=== PATIENT | female | born 1950 | race Two or more races ===

== ENCOUNTER 2023-09-28 15:53 | Inpatient (IN) | payer MEDICARE, OTHER ==
[~2023-09-28] VITALS: Ht 152.4 cm; Wt 77.1 kg
[2023-09-28] MEDS ORDERED: IV NS 0.9% 1,000 ML BAG IV ONE (16:30)
[2023-09-28] MEDS ORDERED: MORPHINE SULFATE INJ 2 MG/ML DISP.SYRIN IV ONE (16:30)
[2023-09-28] MEDS ORDERED: ONDANSETRON HCL/PF 4 MG/2 ML VIAL IVP ONE (16:30)
[2023-09-28] MEDS ORDERED: PANTOPRAZOLE 40 MG VIAL IV ONE (16:30)
[2023-09-28 16:34] LABS: BASOPHILS % (AUTO) 0.6 % (0.0-2.0); EOSINOPHILS # (AUTO) 0.1 K/uL (0.0-0.7); EOSINOPHILS % (AUTO) 0.9 % (0.0-6.0); HEMATOCRIT 28 % (33-45); HEMOGLOBIN 9.3 g/dL (11.5-14.8); LYMPHOCYTES # (AUTO) 2.6 K/uL (0.8-4.8); LYMPHOCYTES % (AUTO) 33.4 % (20.0-44.0); MEAN CORPUSCULAR HEMOGLOBIN 31 PG (26.0-33.0); MEAN CORPUSCULAR HGB CONC 33 g/dl (31.0-36.0); MEAN CORPUSCULAR VOLUME 93 fL (82-100); MONOCYTES # (AUTO) 0.4 K/uL (0.1-1.30); MONOCYTES % (AUTO) 5.6 % (2.0-12.0); NEUTROPHILS # (AUTO) 4.5 K/uL (1.8-8.9); NEUTROPHILS % (AUTO) 59.5 % (43.0-81.0); PLATELET COUNT (AUTO) 356 K/uL (150-450); RED BLOOD CELL COUNT(AUTO) 3.02 MIL/uL (4.0-5.2); RED CELL DISTRIBUTION WIDTH 15.1 % (11.5-15.0); WHITE BLOOD COUNT (AUTO) 7.6 K/uL (4.3-11.0)
[2023-09-28] MEDS ORDERED: ONDANSETRON HCL/PF 4 MG/2 ML VIAL ONE (16:41)
[2023-09-28] MEDS ORDERED: PANTOPRAZOLE 40 MG VIAL ONE (16:41)
[2023-09-28] MEDS ORDERED: MORPHINE SULFATE INJ 4 MG/ML DISP.SYRIN ONE (16:42)
[2023-09-28 16:52] LABS: ALANINE AMINOTRANSFERASE 15 U/L (12-78); ALBUMIN 2.8 g/dL (3.4-5.0); ALKALINE PHOSPHATASE 271 U/L (46-116); ASPARTATE AMINOTRANSFERASE 14 U/L (15-37); BILIRUBIN,DIRECT 0.1 mg/dL (0.0-0.2); BILIRUBIN,TOTAL 0.3 mg/dL (0.2-1.0); CALCIUM, SERUM 9.3 mg/dL (8.5-10.1); CARBON DIOXIDE 26 mmol/L (21-32); CHLORIDE 97 mmol/L (98-107); GLUCOSE 324 mg/dL (74-106); LIPASE 48 U/L (16-77); POTASSIUM 4.4 mmol/L (3.5-5.1); SODIUM SERUM 132 mmol/L (136-145); TOTAL PROTEIN, SERUM 8.2 g/dL (6.4-8.2); UREA NITROGEN, BLOOD 21 mg/dL (7-18)
[2023-09-28] MEDS ORDERED: PIPERACILLIN /TAZOBACTAM 3.375 G in IV D5W 50 ML IV ONE (18:30)
[2023-09-28] MEDS ORDERED: PIPERACI/TAZO 3.375GM/D5W 50ML PB IV ONE (18:35)
[2023-09-28] MEDS ORDERED: MAGNESIUM HYDROXIDE 30 ML UDC PO PRN (20:00)
[2023-09-28] MEDS ORDERED: ONDANSETRON HCL/PF 4 MG/2 ML VIAL IVP PRN (20:00)
[2023-09-28] MEDS ORDERED: MAG HYDROX/AL HYDROX/SIMETH 30 ML UDC PO PRN (20:00)
[2023-09-28] MEDS ORDERED: ACETAMINOPHEN 325 MG TABLET PO PRN (20:00)
[2023-09-28 20:39] LABS: APPEARANCE,URINE CLEAR (CLEAR); BILIRUBIN,URINE NEGATIVE (NEGATIVE); BLOOD, URINE 1+ Ery/uL (NEGATIVE); COLOR,URINE YELLOW (YELLOW); KETONES,URINE NEGATIVE (NEGATIVE); LEUKOCYTE ESTERASE ,URINE 2+ (NEGATIVE); NITRITE, URINE POSITIVE (NEGATIVE); PH,URINE 6.5 (5.0-8.0); PROTEIN,URINE TRACE mg/dl (NEGATIVE); UGLUCOSE TRACE mg/dL (NEGATIVE); UROBILINOGEN,URINE 0.2 EU/dL (0.2)
[2023-09-28 20:49] LABS: WBC,URINE 21-50 /HPF (0-3)
[2023-09-28 20:50] LABS: ADD URINE CULTURE YES; BACTERIA,URINE 1+ /HPF (None Seen)
[2023-09-28] MEDS: IV NS 0.9% 1,000 ML IV PRN (23:06)
[2023-09-29] MEDS ORDERED: hydrALAZINE HCL IV 20 MG VIAL ONE ×2 (04:13→11:47)
[2023-09-29] MEDS ORDERED: hydrALAZINE HCL IV 20 MG VIAL IV PRN (04:30)
[2023-09-29] MEDS ORDERED: ZOSYN IVPB 2.25 G in IV D5W 50ml IV SCH (07:30)
[2023-09-29 09:11] LABS: BASOPHILS % (AUTO) 0.5 % (0.0-2.0); EOSINOPHILS # (AUTO) 0.1 K/uL (0.0-0.7); HEMATOCRIT 29 % (33-45); HEMOGLOBIN 9.8 g/dL (11.5-14.8); LYMPHOCYTES # (AUTO) 2.2 K/uL (0.8-4.8); LYMPHOCYTES % (AUTO) 31.9 % (20.0-44.0); MEAN CORPUSCULAR HEMOGLOBIN 31 PG (26.0-33.0); MEAN CORPUSCULAR HGB CONC 34 g/dl (31.0-36.0); MEAN CORPUSCULAR VOLUME 92 fL (82-100); MONOCYTES # (AUTO) 0.4 K/uL (0.1-1.30); MONOCYTES % (AUTO) 5.1 % (2.0-12.0); NEUTROPHILS # (AUTO) 4.3 K/uL (1.8-8.9); NEUTROPHILS % (AUTO) 60.5 % (43.0-81.0); PLATELET COUNT (AUTO) 360 K/uL (150-450); RED BLOOD CELL COUNT(AUTO) 3.17 MIL/uL (4.0-5.2)
[2023-09-29] MEDS ORDERED: ACETAMINOPHEN 325 MG TABLET ONE (09:24)
[2023-09-29 09:33] LABS: ALBUMIN 2.6 g/dL (3.4-5.0); BILIRUBIN,TOTAL 0.3 mg/dL (0.2-1.0); CALCIUM, SERUM 9.3 mg/dL (8.5-10.1); CREATININE 0.8 mg/dL (0.6-1.3); MAGNESIUM 1.7 mg/dL (1.8-2.4); PHOSPHORUS 3.4 mg/dL (2.5-4.9); POTASSIUM 4.2 mmol/L (3.5-5.1); TOTAL PROTEIN, SERUM 7.8 g/dL (6.4-8.2)
[2023-09-29] MEDS ORDERED: Magnesium 1GM/D5W 100ML PREMIX 100 ML IV ONE ×2 (10:00→10:06)
[2023-09-29] MEDS ORDERED: INSULIN REGULAR, HUMAN 100 UNIT/ML 3 ML VIAL SQ PRN (10:00)
[2023-09-29] MEDS ORDERED: DEXTROSE 50%-WATER 50 ML DISP.SYRIN IV PRN ×2 (10:00→17:30)
[2023-09-29] MEDS ORDERED: SOD FERRIC GLUC 125 MG in IV NS 0.9% 100 ML IV ONE (11:00)
[2023-09-29] MEDS: IV NS 0.9% 1,000 ML IV PRN ×2 (11:49→18:08)
[2023-09-29] MEDS: hydrALAZINE HCL IV 20 MG VIAL IV PRN ×2 (11:52→18:15)
[2023-09-29] MEDS ORDERED: BLOOD SUGAR DIAGNOSTIC 1 EACH STRIP IN SCH (12:00)
[2023-09-29] MEDS ORDERED: PANTOPRAZOLE 40 MG VIAL IV SCH (12:30)
[2023-09-29] MEDS ORDERED: PANTOPRAZOLE 40 MG VIAL ONE (12:40)
[2023-09-29] MEDS ORDERED: SUCRALFATE 1 G/10 ML UDC ONE (12:41)
[2023-09-29] MEDS ORDERED: INSULIN REGULAR, HUMAN 100 UNIT/ML 10 ML VIAL ONE (12:41)
[2023-09-29] MEDS: SUCRALFATE 1 G TABLET PO SCH ×3 (13:11→22:00)
[2023-09-29] MEDS ORDERED: FUROSEMIDE 20 MG/2 ML VIAL IV SCH (14:30)
[2023-09-29] MEDS: ZOSYN IVPB 3.375 G in IV D5W 50ml IV SCH ×2 (15:18→20:27)
[2023-09-29] MEDS ORDERED: AMLODIPINE BESYLATE 10 MG TABLET ONE (15:22)
[2023-09-29] MEDS ORDERED: DOCUSATE SODIUM 100 MG CAPSULE PO ONE (15:22)
[2023-09-29] MEDS: DOCUSATE SODIUM 100 MG CAPSULE PO SCH (15:26)
[2023-09-29] MEDS: AMLODIPINE BESYLATE 5 MG TABLET PO SCH (15:28)
[2023-09-29] MEDS ORDERED: GABA-532 PO (17:21)
[2023-09-29] MEDS ORDERED: FURO-145 PO (17:21)
[2023-09-29] MEDS ORDERED: LISI10TA29 PO (17:21)
[2023-09-29] MEDS ORDERED: GLIM4TAB37 PO (17:21)
[2023-09-29] MEDS ORDERED: CLON0.1T PO (17:21)
[2023-09-29] MEDS ORDERED: SITA1TAB2 PO (17:21)
[2023-09-29] MEDS ORDERED: *INSULIN REGULAR(HUMULIN R)HUM 100 UNIT/ML VIAL SQ PRN (17:30)
[2023-09-29] MEDS ORDERED: CLONIDINE HCL 0.1 MG TABLET PO PRN (18:00)
[2023-09-29] MEDS: FERROUS SULFATE (325 MG) 325 MG/TAB TABLET PO SCH (18:08)
[2023-09-29] MEDS: BLOOD SUGAR DIAGNOSTIC 1 EACH STRIP VI SCH ×2 (18:08→22:34)
[2023-09-29] MEDS: MORPHINE SULFATE INJ 2 MG/ML DISP.SYRIN IV PRN (18:14)
[2023-09-29 20:00] VITALS: BP 134/64; TEMP 98.6; O2SAT 96
[2023-09-29] MEDS: PANTOPRAZOLE 40 MG VIAL IV SCH (20:27)
[2023-09-29] MEDS: GABAPENTIN 300 MG CAPSULE PO SCH (22:00)
[2023-09-29] MEDS: ATORVASTATIN 10 MG TABLET PO SCH (22:00)
[2023-09-30] VITALS (7 sets, daily range): BP systolic 134–170; BP diastolic 63–73; TEMP 98.7–99.9; O2SAT 96–98
[2023-09-30] MEDS: MORPHINE SULFATE INJ 2 MG/ML DISP.SYRIN IV PRN (00:39)
[2023-09-30] MEDS ORDERED: IV NS 0.9% 1,000 ML IV PRN (02:08)
[2023-09-30] MEDS: ZOSYN IVPB 3.375 G in IV D5W 50ml IV SCH ×2 (02:21→08:44)
[2023-09-30] MEDS: BLOOD SUGAR DIAGNOSTIC 1 EACH STRIP VI SCH ×4 (06:51→21:44)
[2023-09-30 07:09] LABS: BASOPHILS % (AUTO) 0.4 % (0.0-2.0); EOSINOPHILS # (AUTO) 0.1 K/uL (0.0-0.7); EOSINOPHILS % (AUTO) 1.3 % (0.0-6.0); HEMATOCRIT 27 % (33-45); HEMOGLOBIN 9.1 g/dL (11.5-14.8); LYMPHOCYTES # (AUTO) 2.6 K/uL (0.8-4.8); MEAN CORPUSCULAR HEMOGLOBIN 31 PG (26.0-33.0); MEAN CORPUSCULAR HGB CONC 34 g/dl (31.0-36.0); MEAN CORPUSCULAR VOLUME 92 fL (82-100); MONOCYTES # (AUTO) 0.4 K/uL (0.1-1.30); MONOCYTES % (AUTO) 6.7 % (2.0-12.0); NEUTROPHILS # (AUTO) 3.2 K/uL (1.8-8.9); NEUTROPHILS % (AUTO) 50.6 % (43.0-81.0); PLATELET COUNT (AUTO) 335 K/uL (150-450); RED CELL DISTRIBUTION WIDTH 15.2 % (11.5-15.0); WHITE BLOOD COUNT (AUTO) 6.3 K/uL (4.3-11.0)
[2023-09-30] MEDS: SUCRALFATE 1 G TABLET PO SCH (07:30)
[2023-09-30 08:01] LABS: ALBUMIN 2.3 g/dL (3.4-5.0); BILIRUBIN,TOTAL 0.3 mg/dL (0.2-1.0); CALCIUM, SERUM 8.9 mg/dL (8.5-10.1); CREATININE 0.8 mg/dL (0.6-1.3); POTASSIUM 3.6 mmol/L (3.5-5.1); TOTAL PROTEIN, SERUM 7.1 g/dL (6.4-8.2)
[2023-09-30] MEDS: PANTOPRAZOLE 40 MG VIAL IV SCH ×2 (08:44→21:10)
[2023-09-30] MEDS: AMLODIPINE BESYLATE 5 MG TABLET PO SCH (08:46)
[2023-09-30] MEDS: FERROUS SULFATE (325 MG) 325 MG/TAB TABLET PO SCH ×2 (08:46→17:41)
[2023-09-30] MEDS: DOCUSATE SODIUM 100 MG CAPSULE PO SCH (08:46)
[2023-09-30] MEDS ORDERED: LISINOPRIL (10MG) 10 MG TABLET PO SCH ×2 (09:00→18:00)
[2023-09-30] MEDS: PIPERACILLIN /TAZOBACTAM 3.375 G in IV D5W 100 ML IV SCH ×2 (12:13→21:00)
[2023-09-30] MEDS: SUCRALFATE 1 G/10 ML UDC GT SCH ×3 (12:14→21:10)
[2023-09-30] MEDS: INSULIN REGULAR, HUMAN 100 UNIT/ML 3 ML VIAL SQ PRN ×2 (12:16→17:38)
[2023-09-30] MEDS ORDERED: ATOR10TA PO (19:07)
[2023-09-30] MEDS ORDERED: AMLO-213 PO (19:07)
[2023-09-30] MEDS ORDERED: PANT40TA2 PO (19:07)
[2023-09-30] MEDS ORDERED: DOCU100C36 PO (19:07)
[2023-09-30] MEDS ORDERED: SUCR1ORA15 PO (19:07)
[2023-09-30] MEDS ORDERED: FERR325T28 PO (19:07)
[2023-09-30] MEDS ORDERED: AMOX-430 PO (19:07)
[2023-09-30] MEDS: ATORVASTATIN 10 MG TABLET PO SCH (21:10)
[2023-09-30] MEDS: GABAPENTIN 300 MG CAPSULE PO SCH (21:10)
[2023-10-01] MEDS ORDERED: LISINOPRIL (10MG) 10 MG TABLET PO SCH (09:00)
== END 2023-09-30 22:00 | disposition home or self-care (01) | DRG 380 ==
LOC: ER 15:53 → TRANSITION 09-29 07:32 → TELE 09-29 17:19
PROVIDERS: ADMIT Internal Medicine; ATTEND Nurse Practitioner Acute Care
PROC: 0DB68ZX Excision of Stomach, Via Natural or Artificial Opening Endoscopic, Diagnostic (ICD-10-PCS; principal; 2023-09-30)
DX: K28.9 Gastrojejunal ulcer, unspecified as acute or chronic, without hemorrhage or perforation (principal); E43 Unspecified severe protein-calorie malnutrition; E87.1 Hypo-osmolality and hyponatremia; N39.0 Urinary tract infection, site not specified; I50.30 Unspecified diastolic (congestive) heart failure; K80.20 Calculus of gallbladder without cholecystitis without obstruction; E11.9 Type 2 diabetes mellitus without complications; E78.5 Hyperlipidemia, unspecified; E83.42 Hypomagnesemia; E86.1 Hypovolemia; E88.09 Other disorders of plasma-protein metabolism, not elsewhere classified; I11.0 Hypertensive heart disease with heart failure; K29.70 Gastritis, unspecified, without bleeding; Z95.0 Presence of cardiac pacemaker; Z98.84 Bariatric surgery status; Z68.33 Body mass index [BMI] 33.0-33.9, adult; R74.8 Abnormal levels of other serum enzymes; B96.89 Other specified bacterial agents as the cause of diseases classified elsewhere; Z79.84 Long term (current) use of oral hypoglycemic drugs; D64.9 Anemia, unspecified
CPT/HCPCS: 36415; 71045-TC; 76700-TC; 78226; 80048-TC; 80053-TC; 80061-TC; 80076-TC; 81001; 82962-TC; 82977-TC; 83540-TC; 83615-TC; 83690-TC; 83735-TC; 83880; 84100-TC; 84484-TC; 85025-TC; 87086-TC; 88305-TC; 88313-TC; 88342; 93307-TC; A9537; C9113; G0378; J0360; J1815; J2270; J2405; J2543; J2704; J2916; J3475; J3490; J7030; J7040; J7060